=== PATIENT | female | born 1960 | race Two or more races ===

== ENCOUNTER → 2016-09-28 | Day surgery (SDC) | payer OTHER ==
[~2016-09-28] MED LIST: AMARYL PO; ATORVASTATIN CA40 MG PO; FLEXERIL10 MG; FLEXERIL10 MG PO; JANUVIA PO; LISINOPRIL10 MG PO; MELOXICAM15 MG; MELOXICAM15 MG PO; METFORMIN PO; PREDNISOLONE ACETATE
--- NOTE | ~2016-09-28 | OR ---
Unit #: [id number] #: [id number] Patient: JAEL STEVENSON [id number] [address] [address] [id number] O MR#: [id number] NAME: JAEL STEVENSON ROOM: Date of Procedure: 09/28/2016 Admission Date: 09/28/2016 Surgeon: Sravan Weldon M.D. : 1960 Attending Physician: Sravan Weldon M.D. Referring Physician: Sravan Weldon M.D. Primary Care Physician: Jericho Cornell M.D. OPERATIVE REPORT PREOPERATIVE DIAGNOSES 1. Reflux symptoms. 2. Intermittent rectal bleeding. POSTOPERATIVE DIAGNOSES 1. Reflux symptoms. 2. Intermittent rectal bleeding. PROCEDURES PERFORMED 1. Esophagogastroduodenoscopy. 2. Biopsy of antrum for Helicobacter pylori testing. 3. Colonoscopy to cecum. ANESTHESIA Monitored anesthesia care. FINDINGS The patient was found to have a small hiatal hernia and mild gastritis on upper endoscopy. On colonoscopy, the patient was found to have a normal colon except for mild internal hemorrhoids. SPECIMENS Sent to Pathology. COMPLICATIONS None apparent. CONDITION The patient tolerated the procedure well. INDICATIONS FOR PROCEDURE The patient is a 56-year-old [place] female, who presents at this time for intermittent reflux symptoms and intermittent rectal bleeding. DESCRIPTION OF PROCEDURE After obtaining informed consent from the patient through her [employer] laboratory worker named Desiree, the patient was brought to the endoscopy suite and after adequate monitored anesthesia care, had the endoscope placed through the mouth into the upper esophagus under direct vision. It was advanced to the second portion of the duodenum without difficulty with the lumen always in view. The duodenum was normal as was the duodenal bulb. Unit #: [id number] #: [id number] Patient: JAEL STEVENSON The pylorus opened normally. There was some mild distal gastritis present and a biopsy was obtained for Helicobacter pylori testing. On retroflexing back to the GE junction, a small hiatal hernia was seen. No other abnormalities were found in the proximal third, middle third, or incisura. On pulling back above the GE junction, the patient was found to have no stenosis, stricture, or neoplasm seen. There was no significant esophagitis. The remaining portion of the esophagus was within normal limits. Laryngeal structures were grossly normal as viewed from above. At this point in time, the colonoscope was placed through the anus and advanced to the level of cecum without difficulty with the lumen always in view. The cecum was normal as was the ileocecal valve. The ascending colon was normal as was the hepatic flexure, transverse colon, splenic flexure, descending colon, sigmoid colon, and rectum. No diverticula were seen. On retroflexing in the rectum to the anorectal junction, there were some mild internal hemorrhoids. On pulling back through the anal canal, there were some mild internal and external hemorrhoids. The scope was removed without difficulty. On digital examination, there was good sphincter tone. No masses palpable. The patient went from the endoscopy suite to the recovery area in stable condition. RECOMMENDATIONS High-fiber diet, lots of liquids, tucks or wipes p.r.n. Gastroesophageal reflux sheet given. Dictated by... Sana Wan/sol TD: 09/28/2016 23:38 JOB #: [id number] CC: [facility] OPERATIVE REPORT Page 1 of 1 X Sravan Weldon MD X PROCEDURE OPERATIVE NOTE
== END | disposition home or self-care (01) ==
LOC: COPS 06:20
DX: K62.5 Hemorrhage of anus and rectum (principal); K44.9 Diaphragmatic hernia without obstruction or gangrene; K29.70 Gastritis, unspecified, without bleeding; K64.8 Other hemorrhoids; K64.4 Residual hemorrhoidal skin tags; K21.9 Gastro-esophageal reflux disease without esophagitis; I10 Essential (primary) hypertension; E11.9 Type 2 diabetes mellitus without complications; Z79.899 Other long term (current) drug therapy; Z98.41 Cataract extraction status, right eye; Z98.42 Cataract extraction status, left eye; Z98.890 Other specified postprocedural states
CPT/HCPCS: 82947; 87077